=== PATIENT | male | born 1970 | race Caucasian/White ===

== ENCOUNTER 2018-06-16 23:17 | Emergency (ER) | payer OTHER ==
[2018-06-16 23:46] VITALS: BP 139/95
[2018-06-17] MEDS ORDERED: LIDOCAINE 5% (700 MG) TRANSDERMAL ADH..PATCH TP ONE (01:19)
[2018-06-17] MEDS ORDERED: METHOCARBAMOL 500 MG TABLET PO ONE (01:19)
[2018-06-17] MEDS ORDERED: HYDROCODONE/ACETAMINOPHEN 5-325 MG (6 TAB/ER DISP) PO PRN (01:19)
[2018-06-17] MEDS ORDERED: DEXAMETHASONE SOD PHOS INJ 10 MG/1 ML VIAL IM ONE (01:19)
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
== END 2018-06-17 02:00 | disposition home or self-care (01) ==
LOC: ER 23:17
DX: M25.511 Pain in right shoulder (principal); M54.2 Cervicalgia; M79.601 Pain in right arm; Z87.81 Personal history of (healed) traumatic fracture
CPT/HCPCS: 99283; 96372; J1100